=== PATIENT | male | born 1945 | race Caucasian/White ===

== ENCOUNTER 2017-09-20 18:35 | Emergency (ER) | payer MEDICARE, OTHER | END 2017-09-20 21:57 | disposition home or self-care (01) | LOC: D.ER 18:35 | DX: S61.012A Laceration without foreign body of left thumb without damage to nail, initial encounter (principal); W26.0XXA Contact with knife, initial encounter; Y93.89 Activity, other specified; Y92.019 Unspecified place in single-family (private) house as the place of occurrence of the external cause; K21.9 Gastro-esophageal reflux disease without esophagitis ==

== ENCOUNTER → 2018-07-11 13:59 | Outpatient (CLI) | payer MEDICARE, OTHER | END | disposition home or self-care (01) | LOC: D.MRI 13:59 | PROVIDERS: ATTEND Family Medicine | DX: M25.561 Pain in right knee (principal) ==